=== PATIENT | female | born 1990 ===

== ENCOUNTER 2021-03-08 06:35 | Day surgery (SDC) | payer OTHER ==
[~2021-03-08 06:35] MED LIST: COZAAR50 MG PO; METOPOROL PO
[2021-03-08] MEDS ORDERED: KETO10TA2 PO (11:13)
== END 2021-03-08 13:30 | disposition home or self-care (01) ==
LOC: CIR.AMB 06:35
PROVIDERS: ATTEND Obstetrics & Gynecology
DX: Z30.2 Encounter for sterilization (principal); Z20.822 Contact with and (suspected) exposure to COVID-19